=== PATIENT | female | born 1950 | race Asian ===

== ENCOUNTER 2016-07-08 07:02 | Day surgery (SDC) | payer MEDICAID, OTHER ==
[~2016-07-08] VITALS: Ht 160 cm; Wt 78.0 kg
[~2016-07-08 07:02] MED LIST: CYCLOPENTOLATE 2% 2 ML OPH OPER SCH; DICLOFENAC 0.1% 2.5 ML OPH OPER SCH; LACTATED RINGER'S 1,000 ML IV SCH; LIDOCAINE 3.5% GEL TUBE OPER ONE; MOXIFLOXACIN 0.5% 3 ML OPH OPER SCH; PHENYLephrine 10% 5 ML OPH OPER SCH; TETRACAINE 0.5% 4 ML OPH OPER SCH; TROPICAMIDE 1% 2 ML OPH OPER SCH
--- NOTE | 2016-07-08 07:07 | HPN ---
Date/Time of Note Date/Time of Note DATE: 07/08/16 TIME: 07:06 RENNY STAUFFER D.O. July 08, 2016 07:07
[2016-07-08] MEDS ORDERED: LEVO75TA65 PO (07:32)
[2016-07-08] MEDS ORDERED: ATEN-51 PO (07:32)
[2016-07-08] MEDS ORDERED: FENTAnyl 50 MCG/ML VIAL ONE (07:58)
[2016-07-08] MEDS ORDERED: CEFAZOLIN 1 GM INJ ONE (07:58)
[2016-07-08] MEDS ORDERED: MIDAZOLAM 1 MG/ML 2 ML INJ ONE (07:58)
[2016-07-08 08:50] VITALS: Ht 160 cm; Wt 78.0 kg
[2016-07-08 08:51] VITALS: BP 131/77; PULSE 56; RESP 18
[2016-07-08] MEDS ORDERED: NA HYALURONATE/CHONDROITIN 0.5 ML SYG RIGHT EYE ONE (09:30)
[2016-07-08] MEDS ORDERED: LIDOCAINE 2%/EPI (MDV) 20ML INJ INJ ONE (09:30)
[2016-07-08] MEDS ORDERED: HYALURONATE/CHONDROITIN 1ML OPH INJ IO ONE (09:30)
[2016-07-08] MEDS ORDERED: METOPROLOL 5 MG INJ ONE (09:54)
[2016-07-08] MEDS ORDERED: CARBACHOL 0.01% 1.5 ML OPH INJ IO ONE (10:09)
[2016-07-08] MEDS ORDERED: TOBRAMYCIN 0.3% 3.5 GM OPH OINT RIGHT EYE ONE (10:11)
[2016-07-08] MEDS ORDERED: ONDANSETRON 4 MG INJ IV PRN (10:30)
[2016-07-08] MEDS ORDERED: FENTAnyl 50 MCG/ML VIAL IV PRN ×2 (10:30)
[2016-07-08 10:35] VITALS: BP 111/68; PULSE 60; RESP 18
[2016-07-08] MEDS ORDERED: CARBACHOL 0.01% 1.5 ML OPH INJ ONE (10:38)
[2016-07-08] MEDS ORDERED: LIDOCAINE 2%/EPI 30 ML INJ ONE (10:38)
[2016-07-08] MEDS ORDERED: EPINEPHrine 1 MG INJ ONE (10:38)
[2016-07-08 10:39] VITALS: BP 122/70; PULSE 60; RESP 14
[2016-07-08] MEDS ORDERED: HYALURONATE/CHONDROITIN 1ML OPH INJ ONE (10:39)
[2016-07-08] MEDS ORDERED: TOBRAMYCIN 0.3% 3.5 GM OPH OINT ONE (10:39)
[2016-07-08 10:44] VITALS: BP 110/60; PULSE 58; RESP 13
[2016-07-08 10:49] VITALS: BP 116/67; PULSE 54; RESP 12
[2016-07-08 10:54] VITALS: BP 116/65; PULSE 54; RESP 15
--- NOTE | 2016-07-08 13:24 | OPR ---
DATE OF OPERATION: 07/08/2016 PREOPERATIVE DIAGNOSIS: Posterior subcapsular cataract, right eye. POSTOPERATIVE DIAGNOSIS: Posterior subcapsular cataract, right eye. PLANNED PROCEDURE: Cataract extraction via phacoemulsification and intraocular lens implantation, right eye. PROCEDURE PERFORMED: Cataract extraction via phacoemulsification and pars plana vitrectomy and intraocular lens implantation, rt.eye. SURGEON: Renny Medeiros MD MEDICAL SECRETARY: Chris Hummel R.N. ANESTHESIA: MAC. INFORMED CONSENT: The patient was given all possible options for treatment of her condition as well as explained in detail most common complications which include, but not limited to, hemorrhage, infection, loss of the nucleus, loss of nucleus fragment, loss of intraocular lens, dislocation of lens, retinal detachment, loss of vision, loss of the eye. The patient understood and signed the consent which can be found in her chart. DESCRIPTION OF PROCEDURE: The patient was brought to the operative room in stable condition, placed on the operating table in supine position. Her right eye was prepped for cataract surgery in routine sterile technique. Retractor was placed in her right eye and clear corneal incision was done with keratome. Lidocaine with epinephrine, preservative-free was instilled in the anterior chamber, which was followed by injection of Viscoat agent and trypan blue dye. Then, dye was removed via irrigation and aspiration with balanced salt solution. Then, capsulorrhexis was performed with cystotome and Utrata forceps. Eventually, [place] chopper and phaco tip used to divide all the nucleus in multiple pieces. I was starting to remove those pieces via phacoemulsification. Eventually, it was noted that one of the pieces disappeared. Additional DisCoVisc agent was instilled into the capsular bag and pars plana vitrectomy was performed, but still pieces of nucleus were partially visible and eventually disappeared in the vitreous. Then, DisCoVisc material was injected into the sulcus and Walker MA60AC 20.0 diopters was inserted into the sulcus. Lens was then rotated and well positioned. Then, DisCoVisc material was removed via irrigation and aspiration. Air was injected in the anterior chamber for endothelial protection. One 10-0 nylon suture was placed on the wound. Then, TobraDex ointment was instilled in the conjunctival sac and a patch was placed over closed eyelid. The patient was transferred to recovery room in stable condition. Dictated By: RENNY MEDEIROS MD NT/MARYAM Conf#: [id number] DID#: [id number]
== END 2016-07-08 11:41 | disposition home or self-care (01) ==
LOC: SDS 07:02
PROVIDERS: ATTEND Ophthalmology
DX: H25.041 Posterior subcapsular polar age-related cataract, right eye (principal); I10 Essential (primary) hypertension; E03.9 Hypothyroidism, unspecified
CPT/HCPCS: 66984; J0171; J0690; J2250; J3010; V2630; Z7512; Z7610